=== PATIENT | male | born 1960 ===

== ENCOUNTER 2023-06-09 12:43 | Outpatient (AMB) | payer OTHER, SELFPAY ==
--- NOTE | 2023-06-09 12:55 | A.OFFVIS_ITS ---
Intake Vital Signs 06/09/23 12:56 Height 5 ft 7 in Weight 204 lb 8 oz BMI 32.0 BP 124/60 Blood Pressure Location Lt brachial Position Sitting Pulse 48 L Pulse Source Pulse Oximeter Pulse Oximetry (%) 97 Oxygen Delivery Method Room Air Intake Visit Reasons: CRE-[id number] Intake Note: Pt presents today for ? Parkinsons/Demetia Allergies No Known Allergies Allergy (Verified 06/09/23 12:59) Medication List - Last Reconciled 06/09/23 by Radha Nation MD ascorbic acid (vitamin C) 1 g PO Q6H aspirin 81 mg PO DAILY baclofen 20 mg PO DAILY buspirone 15 mg PO BID cholecalciferol (vitamin D3) 25 mcg PO DAILY clonazepam 1 mg PO DAILY cyclosporine 0.05% (Restasis MultiDose) 1 drp ophthalmic (eye) Q12H docusate sodium 100 mg PO DAILY donepezil (Aricept) 10 mg PO DAILY duloxetine 60 mg PO BID famotidine 20 mg PO BID fluticasone propionate 50 mcg/actuation (Allergy Relief (fluticasone)) 1 spray intranasal DAILY gabapentin 400 mg PO BID ipratropium-albuterol 20-100 mcg/actuation (Combivent Respimat) 1 puff inhalation Q6H lactulose 10 grams PO DAILY loratadine (Allergy Relief (loratadine)) 10 mg PO DAILY losartan 100 mg PO DAILY multivitamin 1 tab PO DAILY oxycodone 10 mg PO Q8H PRN propranolol 80 mg PO DAILY sucralfate 1 g PO BID tamsulosin 0.4 mg PO DAILY trazodone 150 mg PO DAILY umeclidinium 62.5 mcg/actuation 1 inh inhalation DAILY HPI HPI Comments History of Present Illness Details A certified medical services manager Betsy Singh helped with this appointment. 62y/o male comes for neurological evaluation . He used to see Dr. Willingham for ? dementia ? parkinsons He has h/o diabetes - currently stable without medications. He has h/o chronic back pain - sees pain management. He reports dylan intermittent hand tremors R>L during action. It is usually triggered by anxiety He has difficulty dressing and showering because of his back and knee pain.No change in speech. He has mild drooling.No change in handwriting.No difficulty with using utensils. He has trouble with sleep due to back pain. He has gait issues due to pain.he uses a cane and has had a few falls. He has trouble with focusing attention, short term memory issues.He has ROMEO and is on CPAP . He denies REM behavior disorder. He has depression anxiety. [facility] Medical History (Updated 06/09/23 @ 15:35 by Radha Nation MD) BPH (benign prostatic hyperplasia) Chronic back pain Coarse tremors Cognitive decline COPD (chronic obstructive pulmonary disease) Depression Genital herpes GERD (gastroesophageal reflux disease) Hepatitis C HTN (hypertension) Lumbar spondylosis ROMEO on CPAP Palpitations Pulmonary emboli Surgical History H/O fasciotomy H/O hernia repair H/O knee surgery Hx of cholecystectomy Family History Mother Myocardial infarct Father Lung cancer Paternal Grandmother Lung cancer Social History Alcohol intake: never Patient Tobacco Use Status: Current someday Tobacco user Review of Systems Const Reports daytime sleepiness, Reports difficulty sleeping, Reports fatigue, Reports lethargy, Reports malaise and Reports weight gain Eyes Reports blurry vision ENT Reports neck pain Musc Reports back pain, Reports arthralgias, Reports muscle weakness and Reports neck pain Neuro Reports confusion, Reports memory loss and Reports tremor(s) Psych Reports anxiety, Reports confusion, Reports depression and Reports memory loss Endo Reports fatigue Physical Exam Vital Signs: Last Vital Signs Pulse 48 L 06/09/23 12:56 BP 124/60 06/09/23 12:56 Pulse Ox 97 06/09/23 12:56 Oxygen Delivery Method Room Air 06/09/23 12:56 BMI result Body Mass Index 32.0 Const General: cooperative, healthy appearing, anxious and confusion Nutritional Appearance: overweight Orientation/consciousness: patient oriented x3 and confusion Neuro Other: Normal facial expression and blink normal speech General: patient oriented x3, tone normal, moves all extremities, no focal motor deficits and confusion Cranial nerves: Yes Facial sensation intact/muscles of mastication intact, Yes Bilaterally intact EOM present, Yes Nystagmus not present, Yes Normal facial strength present, Yes Midline tongue present, Yes Symmetric palate elevation present and Yes Ability to bilaterally elevate shoulders present Gait exam (Neuro): Antalgic gait present Motor exam (neuro): 5/5 motor strength present throughout and Normal motor muscle tone present throughout Deep tendon reflexes (DTR's): Right triceps reflex intensity grade: 1+, Left triceps reflex intensity grade: 1+, Rt Biceps (C5, C6): 1+, Left biceps reflex intensity grade: 1+, Right brachioradialis reflex intensity grade: 1+, Left brachioradialis reflex intensity grade: 1+ and Right patellar reflex intensity grade: 1+ Coordination: [id number] test normal Psych Affect: Labile affect present and Sad affect present Assessment & Plan Assessment & Plan (1) Coarse tremors: Code(s): G25.2 - Other specified forms of tremor (2) Cognitive decline: Code(s): R41.89 - Other symptoms and signs involving cognitive functions and awareness Plan Tremors are likely exaggerated physiological tremors. no evidence of parkinsons on todays exam His mood seems to be poorly controlled. consider a second opinion regarding his mood management . he denies any suicidal thoughts today His cognitive decline is likely multifactorial with poorly controlled mood, ch ronic pain, polypharmacy playing a role. Consider neuropsych eval for a more detailed exam. continue donepezil 10mg qd Coding Level of Care Code New Pt Level 4 (03072) Diagnoses Coarse tremors G25.2 Cognitive decline R41.89
[2023-06-09 12:56] VITALS: BP 124/60; PULSE 48; O2SAT 97; BMI 32.0
== END 2023-06-09 13:38 | disposition home or self-care (01) ==
PROVIDERS: PCP Internal Medicine; Visit Provider Psychiatry & Neurology Neurology
DX: G25.2 Other specified forms of tremor (principal); R41.89 Other symptoms and signs involving cognitive functions and awareness
CPT/HCPCS: 99204

== ENCOUNTER → 2023-06-09 12:43 | Outpatient (BNVA) | payer OTHER, SELFPAY | PROVIDERS: PCP Internal Medicine; Visit Provider Psychiatry & Neurology Neurology | DX: G25.2 Other specified forms of tremor (principal); R41.89 Other symptoms and signs involving cognitive functions and awareness | CPT/HCPCS: 99202 ==

== ENCOUNTER 2024-03-15 10:17 | Outpatient (AMB) | payer OTHER, SELFPAY ==
--- NOTE | 2024-03-15 10:23 | A.OFFVIS_ITS ---
Vital Signs 03/15/24 10:24 Height 5 ft 7 in Weight 204 lb BMI 31.9 BP 130/70 Blood Pressure Location Rt brachial Position Sitting Respiration 16 Pulse 76 Pulse Source Pulse Oximeter Pulse Oximetry (%) 95 Oxygen Delivery Method Room Air Intake Visit Reasons: Follow up - Confirmed Intake Note: Pt presents for a 9 month follow up for coarse tremors. Hand Sewer Shoes Required: Yes Hand Sewer Shoes Name: Olivia Mckeon CMA/ Allergies celecoxib [From Celebrex] Allergy (Mild, Verified 03/15/24 10:29) Stomach Upset Medication List - Last Reconciled 03/15/24 by Radha Nation MD ascorbic acid (vitamin C) 1 g PO Q6H aspirin 81 mg PO DAILY baclofen 20 mg PO DAILY buspirone 15 mg PO BID cholecalciferol (vitamin D3) 25 mcg PO DAILY clonazepam 1 mg PO DAILY cyclosporine 0.05% (Restasis MultiDose) 1 drp ophthalmic (eye) Q12H docusate sodium 100 mg PO DAILY donepezil (Aricept) 10 mg PO DAILY duloxetine 60 mg PO DAILY famotidine 20 mg PO BID fluticasone propionate 50 mcg/actuation (Allergy Relief (fluticasone)) 1 spray intranasal DAILY gabapentin 400 mg PO BID ipratropium-albuterol 20-100 mcg/actuation (Combivent Respimat) 1 puff inhalation Q6H lactulose 10 grams PO DAILY loratadine (Allergy Relief (loratadine)) 10 mg PO DAILY losartan 100 mg PO DAILY multivitamin 1 tab PO DAILY oxycodone 10 mg PO Q8H PRN propranolol XL 80 mg PO DAILY sucralfate 1 g PO BID tamsulosin 0.4 mg PO DAILY trazodone 150 mg PO DAILY umeclidinium 62.5 mcg/actuation 1 inh inhalation DAILY HPI Comments Details: 63y/o male comes for follow up. He says his tremors are worse, his gait is more unstable and his memory is worse. He had few falls. His mood is worse .His duloxetine was discontinued - his sleep worsened and anxiety worsened . he was started on a new medication but he does not remember the name He restarted duloxetine 60mg qd yesterday and he feels better. He used to see Dr. Willingham for ? dementia ? parkinsons He has h/o diabetes - currently stable without medications. He has h/o chronic back pain - sees pain management. He reports dylan intermittent hand tremors R>L during action. It is usually triggered by anxiety He has difficulty dressing and showering because of his back and knee pain.No change in speech. He has mild drooling.No change in handwriting.No difficulty with using utensils. He has trouble with sleep due to back pain. He has gait issues due to pain.he uses a cane and has had a few falls. He has trouble with focusing attention, short term memory issues.He has ROMOE and is on CPAP . He denies REM behavior disorder. [facility] Medical History Cognitive decline Genital herpes Hepatitis C BPH (benign prostatic hyperplasia) GERD (gastroesophageal reflux disease) Depression Pulmonary emboli Lumbar spondylosis COPD (chronic obstructive pulmonary disease) Palpitations Coarse tremors ROMEO on CPAP Chronic back pain HTN (hypertension) Surgical History H/O fasciotomy H/O knee surgery H/O hernia repair Hx of cholecystectomy Family History Mother Myocardial infarct Father Lung cancer Paternal Grandmother Lung cancer Social History Alcohol intake: never Patient Tobacco Use Status: Current someday Tobacco user Review of Systems Neuro Reports confusion Psych Reports confusion Physical Exam Vital Signs: Last Vital Signs Pulse 76 03/15/24 10:24 Resp 16 03/15/24 10:24 BP 130/70 03/15/24 10:24 Pulse Ox 95 03/15/24 10:24 Oxygen Delivery Method Room Air 03/15/24 10:24 BMI result Body Mass Index 31.9 Const General: cooperative, healthy appearing, anxious and confusion Nutritional Appearance: overweight Orientation/consciousness: patient oriented x3 and confusion Neuro Other: Normal facial expression and blink normal speech General: patient oriented x3, tone normal, moves all extremities, no focal motor deficits and confusion Cranial nerves: Yes Facial sensation intact/muscles of mastication intact, Yes Bilaterally intact EOM present, Yes Nystagmus not present, Yes Normal facial strength present, Yes Midline tongue present, Yes Symmetric palate elevation present and Yes Ability to bilaterally elevate shoulders present Gait exam (Neuro): Antalgic gait present Motor exam (neuro): 5/5 motor strength present throughout and Normal motor muscle tone present throughout Coordination: [id number] test normal Psych Affect: Labile affect present and Sad affect present Assessment & Plan Assessment & Plan (1) Coarse tremors: Comment: ? orthostatic tremors Code(s): G25.2 - Other specified forms of tremor Category: Medical (2) Cognitive decline: Comment: mood related / vascular Code(s): R41.89 - Other symptoms and signs involving cognitive functions and awareness Category: Medical Plan Tremors are likely exaggerated physiological tremors. no evidence of parkinsons on todays exam Discuss with psychiatry about mood management. cognitive therapy His cognitive decline is likely multifactorial with poorly controlled mood, chronic pain, polypharmacy playing a role. continue donepezil 10mg q Orders: Referrals Speech and Hearing Referral R41.89 - Other symptoms and signs involving cognitive functions and awareness Coding Level of Care Code Est Pt Level 4 (00612) Diagnoses Coarse tremors G25.2 Cognitive decline R41.89
[2024-03-15 10:24] VITALS: BP 130/70; PULSE 76; RESP 16; O2SAT 95; BMI 31.9
== END 2024-03-15 10:50 | disposition home or self-care (01) ==
PROVIDERS: PCP Internal Medicine; Visit Provider Psychiatry & Neurology Neurology
DX: G25.2 Other specified forms of tremor (principal); R41.89 Other symptoms and signs involving cognitive functions and awareness
CPT/HCPCS: 99214

== ENCOUNTER → 2024-03-15 10:17 | Outpatient (BNVA) | payer OTHER, SELFPAY | PROVIDERS: PCP Internal Medicine; Visit Provider Psychiatry & Neurology Neurology | DX: G25.2 Other specified forms of tremor (principal); R41.89 Other symptoms and signs involving cognitive functions and awareness | CPT/HCPCS: 99212 ==

== ENCOUNTER 2024-08-23 09:47 | Outpatient (RCR) | payer OTHER, SELFPAY ==
--- NOTE | 2024-08-27 13:01 | MHC.SP.ADU ---
Referring provider: Radha Weller MD Reason for Referral: Difficulties with memory Type of Treatment: 85630 Standardized Cognitive Performance Testing, per hour Date of Plan of Treatment: 08/23/24 Onset of Symptoms/Illness: 03/15/24 Date Treatment Started: 08/23/24 Medical Diagnosis: R41.89 Other symptoms and signs involving cognitive functions and awareness Primary Speech Language Diagnosis: R41.841 Cognitive communication disorder Secondary Speech Language Diagnosis: R47.01 Aphasia History Oliver Shaw is a 64 year old male referred for a cognitive linguistic evaluation by Radha Weller MD from [facility] in [place], [place]. Oliver reports tremors, unsteady gait, worsening memory, and experiencing falls. Per EMR, he used to see Dr. Willingham for question of dementia versus Parkinson?s. It is unclear whether Oliver has gotten a formal diagnosis. He has difficulty dressing and showering because of back and knee pain and no trouble writing or using utensils. He has ROMEO and is on a CPAP. Medical history also includes GERD, depression, pulmonary emboli, COPD, and hypertension. Patient reports having his hearing tested in 2018 which revealed typical hearing status. He is enrolled in psychological counselling presently. He received physical therapy in May 2024, but discontinued services as it was causing his pain to get worse in his back and leg. Patient uses a cane and walker to assist with ambulation. Patient reports sometimes having trouble with swallowing, expressing thoughts, understanding what others are saying, finding words, maintaining topic of conversation and using his voice. He has frequent trouble with memory, problem solving, focusing, and following directions. Oliver expressed that his communication and cognitive difficulties have been causing him anxiety and frustration. He reports choking on foods and liquids intermittently. He believes he has seen a doctor about this in the past but is unsure if he has ever had an instrumental exam done for his swallow. Oliver is a ramona [place] speaker, but also speaks Occitan. 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 He has been retired since 2012 and lives alone in a private residence. He enjoys spending time with his kids on the weekends and on weekdays attends appointments and runs errands as required. Medical History: Other: Medical History Cognitive decline Genital herpes Hepatitis C BPH (benign prostatic hyperplasia) GERD (gastroesophageal reflux disease) Depression Pulmonary emboli Lumbar spondylosis COPD (chronic obstructive pulmonary disease) Palpitations Coarse tremors ROMEO on CPAP Chronic back pain HTN (hypertension) Surgical History H/O fasciotomy H/O knee surgery H/O hernia repair Hx of cholecystectomy Social History: Employment Status: Retired Highest level of education obtained: Completed High School/GED Current Living Situation: Lives alone in private residence Assistive Devices in use: Cane, Walker Reported Speech, Language, Cognition difficulties: Attention, Memory, Speaking, Swallowing Assessment Tests of Speech & Lang Adults: BNT Clinical Impression: Impaired Observations: Oliver completed the Burwell Naming Test (BNT) Standard Form. He was presented with simple line drawings, which he was instructed to name in a confrontation naming task. Oliver correctly named 32 out of 60 images independently. Patient was able to name most common nouns, but exhibited some difficulty naming less salient items, such as scroll, sphinx, and yoke. Oliver produced some semantic paraphasias (i.e. iliamna named as ?rat,? knocker as ?doorbell,? and funnel as ?faucet?), mislabeling items with other words that were semantically related. Oliver did not appear to be aware that these were errors until he was asked to clarify his response. He demonstrated familiarity with many of the presented stimuli, often describing the item when he could not recall its label. For example, he described ?stethoscope? as ?the thing the doctors use,? and ?escalator? as ?electric steps.? Oliver recognized the correct label in 14 out of 28 trials when provided with a choice of 4 written words. He also benefitted from phonemic cues and sentence completion prompts (i.e. ?If you have a dog that bites you use a m?.? for ?muzzle?). 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 Tests of Cognition: RBANS Clinical Impression: Impaired Observations: Oliver?s cognitive linguistic skills were evaluated using the RBANS: The Repeatable Battery for the Assessment of Neuropsychological Status (RBANS-Updated Form A). The RBANS assesses aspects of cognitive memory, language, and attention skills. The RBANS is considered a screening battery for cognitive function used with adolescents and adults, ages 12 to 89 years. Composite domains assessed in this evaluation are: Immediate Memory, Visuospatial/Constructional, Language, Attention, and Delayed Memory. Assessed domains and their scores are summarized below: IMMEDIATE MEMORY: These subtests assess an individual?s ability to remember a small amount of information immediately after it is presented. Oliver was presented with a list of 10 spoken words and was instructed to repeat back as many words as he could remember from the list (List Learning). He initially recalled 4 items from the list of 10. After 3 repetitions, he recalled up to 6 items on the list, indicating that verbal repetition seems to facilitate his recall to some degree. After listening to a spoken paragraph, Oliver was instructed to re-tell the story with as much detail as he could remember (Story memory). He seemed to have an easier time recalling information from a narrative and was able to retell the narrative with most details presented to him. List Learning Total Score: 22 Scaled Score: 6 Percentile: 9th Interpretation: Low Average Story Memory Total Score: 18 Scaled Score: 11 Percentile: 63 Interpretation: Average Immediate Memory Index score: 90 Percentile: 25th Interpretation: Average VISUOSPATIAL/CONSTRUCTIONAL: These subtests assess an individual?s visuospatial skills and perception of spatial relationships. Oliver was able to complete these tasks with ease. He re-aashish a figure without error, and matched lines based on orientation. Oliver?s visuospatial skills are a relative strength. Figure Copy Total Score: 20 Scaled Score: 14 Percentile: 91 Interpretation: Superior Line Orientation Total Score: 15 Percentile Group: 26-50 Interpretation: Average Visuospatial/Constructional Index score: 105 Percentile Rank: 63 Interpretation: Average LANGUAGE: These subtests assess an individual?s word retrieval skills. Oliver named 10 out of 10 images during a confrontational naming task (Picture Naming), but exhibited more difficulty listing items in a category within a time constraint (Semantic Fluency). No errors or perseverations were observed. Oliver presents with mild anomia. Picture Naming Total Score: 10 Percentile Group: 51-75 Interpretation: Average Semantic Fluency Total Score: 9 Scaled Score: 3 Percentile Rank: 1st Interpretation: Extremely Low Language Index score: 82 Percentile Rank: 12 Interpretation: Low Average ATTENTION: These subtests assess an individual?s capacity to remember and manipulate both visually and orally presented information in short-term memory storage. Oliver was first instructed to repeat back number series that were between 2-9 digits long (Digit Span). He recalled up to 5-6 numbers at a time and often asked for the number series to be repeated to him multiple times. Oliver was also instructed to code markings with numbers (Coding). Oliver appeared distracted during this task and requested the clinician clarify task instructions. Digit Span Total Score: 8 Scaled Score: 7 Percentile Rank: 16 Interpretation: Low Average Coding Total Score: 19 Scaled Score: 3 Percentile: 1st Interpretation: Extremely Low Attention Index score: 68 Percentile Rank: 2nd Interpretation: Extremely Low DELAYED MEMORY: These subtests assess an individual?s retrieval of information from long-term memory. Oliver was able to recall several items from a list (List Recall), but exhibited more difficulty recalling details from a narrative (Story Recall) and visual information in order to re-draw a figure he previously constructed (Figure Recall). Oliver reported that he has most trouble in this area. List Recall Total Score: 4 Percentile Group: 26-50 Interpretation: Average List Recognition Total Score: 13 Percentile Group: <2 Interpretation: Extremely Low Story Recall Total Score: 6 Scaled Score: 7 Percentile Rank: 16 Interpretation: Low Average Figure Recall Total Score: 9 Scaled Score: 7 Percentile Rank: 16 Interpretation: Low Average Delayed Memory Index Score: 68 Percentile Rank: 2nd Interpretation: Extremely Low SUM OF INDEX SCORES: 413 TOTAL SCALE SCORE: 78 PERCENTILE RANK: 7% Interpretation: Borderline Lauren Luna (1998). Repeatable Battery for the Assessment of Neuropsychological Status [Manual]. [place], [place]: [place]. Impressions and Recommendations Summary: Oliver presents with a mild cognitive linguistic impairment, with difficulties in the areas of attention, word retrieval, and delayed recall. Oliver reports this is affecting him day to day and causing him increased anxiety and frustration. Oliver reports he has a hard time remembering what he had eaten the day before and forgets what he was going to do if he does not follow a particular routine. He has compensated for his difficulties with various strategies. For example, he shared that he keeps a notebook by his recliner which he uses to write down notes, to-do lists, and appointments. He leaves the light on in his bathroom as a reminder that he needs to put in his eye drops. If the light is off, it indicates to him he had already used his drops. Oliver shared another example, wherein he lays his inhaler when it has not been used and places it upright when it has. Oliver also struggles with word finding difficulty when engaging in conversation. Oliver is recommended a trial of cognitive therapy weekly x 12 sessions to work on the goals targeting short term memory, attention, and word retrieval: Impact on Daily Function/Activity Limitations: Daily Activities: Mild Interpersonal Interactions: Mild Community: Mild Prognosis for Improvement: Fair Recommendation for Speech Therapy: Outpatient Speech Therapy Frequency/Duration: 1x weekly x 12 weeks Date Range for Service Requested: Time to Reassess: PRN Shelter Goals: 1.) Oliver will utilize a variety of word-finding strategies at the conversational level with minimal assistance in >80% opportunities presented to him. 2.) Oliver will utilize compensatory strategies to assist (immediate and delayed) short-term memory in 80% of opportunities independently. Short Term Goals: Goal # : 1.1. Oliver will list 3-4 members per spoken category in 80% of trials when provided with minimal verbal prompts. 1.2. Oliver will produce a minimum of 4 different features, when presented with a word using semantic feature analysis (SFA), given minimal verbal prompts, with 80% accuracy. Goal Status: New Goal Goal# : 2.1. Oliver will recall page-level information and answer questions about the material at 80% accuracy given occasional visual cues after a 30-minute delay. 2.2. Oliver will use internal memory strategies (i.e. rehearsal, association, visualization) to recall 5-6 items at 80% accuracy when provided with minimal verbal cues. Goal Status: New Goal Goal # : 2.3. Oliver will write down relevant notes while presented with auditory instructions (i.e. voicemail message) and recall 80% of the information given use of written notes only. 2.4. Oliver will electively use an julio or tech device to record and retrieve needed information in four out of five contexts. Goal Status: New Goal Recommended Referrals to be Discussed with Primary Care Provider: Neurology Other: See Comment Recommend instrumental swallow assessment (i.e. MBSS) given patient's reports of choking/coughing with PO intake Patient Education: Completed: Yes Patient/Caregiver Education: Described Results of Evaluation Patient expressed understanding of evaluation Patient agrees with goals and treatment plan Comments/Barriers to Learning: It was a pleasure meeting and working with Oliver. Please do not hesitate to contact the [facility] if we can be of further assistance in his care. Color Straining Bag Washer Clinican/Clinical Fellow: No Supervisory Statement: N/A Speech Language Pathologist: Gillian Bishop M.A., CCC-WET END SUPERVISOR
== END 2024-08-28 15:48 | disposition still patient (30) ==
LOC: HO.SH 09:47
PROVIDERS: PCP Internal Medicine; Visit Provider Psychiatry & Neurology Neurology
DX: R41.89 Other symptoms and signs involving cognitive functions and awareness (principal)
CPT/HCPCS: 96125

== ENCOUNTER 2024-09-26 10:29 | Outpatient (AMB) | payer OTHER, SELFPAY ==
[2024-09-26 10:49] VITALS: BMI 31.9
--- NOTE | 2024-09-26 10:49 | MHC.OFFVIS ---
Vital Signs 09/26/24 10:49 Height 5 ft 7 in Weight 204 lb BMI 31.9 Intake Visit Reasons: Follow up Intake Note: Patient presents for follow up Allergies celecoxib [From Celebrex] Allergy (Mild, Verified 09/26/24 10:50) Stomach Upset PFSH Medical History Cognitive decline Genital herpes Hepatitis C BPH (benign prostatic hyperplasia) GERD (gastroesophageal reflux disease) Depression Pulmonary emboli Lumbar spondylosis COPD (chronic obstructive pulmonary disease) Palpitations Coarse tremors ROMEO on CPAP Chronic back pain HTN (hypertension) Surgical History H/O fasciotomy H/O knee surgery H/O hernia repair Hx of cholecystectomy Family History Mother Myocardial infarct Father Lung cancer Paternal Grandmother Lung cancer Social History Alcohol intake: never Patient Tobacco Use Status: Current someday Tobacco user Coding
--- NOTE | 2024-09-26 10:53 | A.OFFVIS_ITS ---
Vital Signs 09/26/24 10:49 09/26/24 10:54 Height 5 ft 7 in Weight 204 lb BMI 31.9 31.9 Intake Visit Reasons: Follow up Intake Note: Patient presents for follow up Allergies celecoxib [From Celebrex] Allergy (Mild, Verified 09/26/24 10:50) Stomach Upset Medication List - Last Reconciled 09/26/24 by Radha Nation MD ascorbic acid (vitamin C) 1 g PO Q6H aspirin 81 mg PO DAILY baclofen 20 mg PO DAILY buspirone 15 mg PO BID cholecalciferol (vitamin D3) 25 mcg PO DAILY clonazepam 0.5 mg PO DAILY cyclosporine 0.05% (Restasis MultiDose) 1 drp ophthalmic (eye) Q12H docusate sodium 100 mg PO DAILY donepezil (Aricept) 10 mg PO DAILY duloxetine 20 mg PO DAILY famotidine 20 mg PO BID fluticasone propionate 50 mcg/actuation (Allergy Relief (fluticasone)) 1 spray intranasal DAILY gabapentin 400 mg PO BID ipratropium-albuterol 20-100 mcg/actuation (Combivent Respimat) 1 puff inhalation Q6H lactulose 10 grams PO DAILY loratadine (Allergy Relief (loratadine)) 10 mg PO DAILY losartan 100 mg PO DAILY multivitamin 1 tab PO DAILY oxycodone 10 mg PO Q8H PRN propranolol XL 80 mg PO DAILY sucralfate 1 g PO BID tamsulosin 0.4 mg PO DAILY trazodone 150 mg PO DAILY umeclidinium 62.5 mcg/actuation 1 inh inhalation DAILY venlafaxine ER 150 mg PO BEDTIME HPI Comments Details: 63y/o male comes for follow up for tremors. Patient seen by myself with Dr. Nation He says his tremors are gait better days and worse during the mornings > and sometimes late in the evening. his memory is worse. He had few falls. His mood is worse because he has fear, anxiety about what he is saying or doing then he gets angry with the kids. He has to do things in a step by step sequential manner. His sleep worsened and anxiety worsened. Goes to bed at 10pm gets up at 6am, has fragmented sleep because he can't get back to sleep. He was started on a new medication but he does not remember the name, He restarted duloxetine 60mg qd yesterday and he feels better. He reports bilateral intermittent hand tremors R>L during action. It is usually triggered by anxiety. He has difficulty dressing and showering because of his back and knee pain, [facility] visits daily for assistance 8AM and 4PM. No change in speech. He has mild drooling. No change in handwriting.No difficulty with using utensils. He has trouble with sleep due to back pain. He has gait issues due to pain. He uses a cane and has had 2 falls, once in the bedroom, and once in the living room he steps on the cane. He has trouble with focusing attention, short term memory issues.He has ROMEO and is on CPAP . He denies REM behavior disorder. He has h/o chronic back pain - sees pain management. Patient has chronic pain, and mood disorder with depression, referred to psychiatry and behavioral health[facility] Medical History Cognitive decline Genital herpes Hepatitis C BPH (benign prostatic hyperplasia) GERD (gastroesophageal reflux disease) Depression Pulmonary emboli Lumbar spondylosis COPD (chronic obstructive pulmonary disease) Palpitations Coarse tremors ROMEO on CPAP Chronic back pain HTN (hypertension) Surgical History H/O fasciotomy H/O knee surgery H/O hernia repair Hx of cholecystectomy Family History Mother Myocardial infarct Father Lung cancer Paternal Grandmother Lung cancer Social History Alcohol intake: never Patient Tobacco Use Status: Current someday Tobacco user Review of Systems Const All systems reviewed & are unremarkable except as noted in HPI and below Neuro Reports confusion (looks very confused at baseline.) Psych Reports confusion (looks very confused at baseline.) Physical Exam Vital Signs: BMI result Body Mass Index 31.9 Tearful, cries in between each sentences. Const General: cooperative, anxious, confusion (looks very confused at baseline.) and tired appearing Nutritional Appearance: average body habitus Orientation/consciousness: patient oriented x3 and confusion (looks very confused at baseline.) Resp Effort & Inspection: normal respiratory effort and able to speak in complete sentences Neuro General: patient oriented x3 and confusion (looks very confused at baseline.) Psych Affect: Sad affect present Attitude: Avoids eye contact (attititude/behavior) Thought process: Perseverating thought process present Insight: Limited insight present (Psych) Judgement: Limited judgement present (Psych) Orientation What is the (year) (season) (date) (day) (month)?: year, season, day and month Where are we (state) (county) (town or city) (hospital) (floor)?: state, town or city and floor Registration Name of 3 unrelated objects clearly and slowly, then ask patient to repeat all 3 of them. (1st repeat determines score. Make sure they can repeat all three): object 1, object 2 and object 3 Attention & Calculation (CHOOSE ONE) Ask pt to begin with 100 & count backward by 7. Stop after 5 repeats. If pt cannot ask them to spell the word WORLD backward.: 93, 86, 79, 72 and 65 Spell WORLD backwards (DLROW): 3 letters Recall Ask patient to repeat the 3 items from question #3.: object 1, object 2 and object 3 Language Show patient a wristwatch & ask what it is. Repeat for pencil.: watch and pencil Ask the patient to repeat the phrase 'No ifs, ands, or buts' after you.: incorrect Ask the patient to 'take a piece of paper with their right hand' 'fold paper in half' 'place paper on floor': take paper in right hand, fold paper in half and place paper on floor Print the sentence 'CLOSE YOUR EYES' on a piece. If patient actually closes eyes then score.: followed written direction Give patient a blank piece of paper & ask to write a sentence. Score if it contains a noun & verb.: sentence contains subject and verb Score Score: 28 Assessment & Plan Assessment & Plan (1) Depression: Code(s): F32.A - Depression, unspecified Category: Medical Qualifiers: Depression Type: unspecified Qualified Code(s): F32.A - Depression, unspecified (2) Coarse tremors: Comment: ? orthostatic tremors Code(s): G25.2 - Other specified forms of tremor Category: Medical Plan MMSE 28/30 today d/t Cognitive Decline is on Donezapil 10mg PO daily. CPAP use for ROMEO Tremors bilateral Duloxetine since 02/2024 Anxiety and Mood disorder on Clonazepam Chronic depression and Pain, worsening mood disorder and symptoms, will refer patient to psychology and or psychiatry for better management. Coding Level of Care Code Est Pt Level 3 (64426) Diagnoses Depression, unspecified depression type F32.A Depression Type: unspecified Coarse tremors G25.2
[2024-09-26 10:54] VITALS: BMI 31.9
== END 2024-09-26 12:01 | disposition home or self-care (01) ==
PROVIDERS: Absent Provider Physician Assistant Medical; PCP Internal Medicine; Visit Provider Physician Assistant Medical
DX: F32.A Depression, unspecified (principal); G25.2 Other specified forms of tremor
CPT/HCPCS: 99213

== ENCOUNTER → 2024-09-26 10:29 | Outpatient (BNVA) | payer OTHER, SELFPAY | PROVIDERS: Absent Provider Physician Assistant Medical; PCP Internal Medicine; Visit Provider Physician Assistant Medical | DX: G25.2 Other specified forms of tremor (principal); F32.A Depression, unspecified | CPT/HCPCS: 99212 ==

== ENCOUNTER 2025-06-19 09:46 | Outpatient (AMB) | payer OTHER, SELFPAY ==
--- OUTSIDE RECORDS SUMMARY | 2025-06-06 06:00 | XMS_ITS ---
Author Organization [facility] Address [address] [facility] [address] [facility] [address] Care Team Providers Care Ear Pull Machine Operator Name Role Phone Osmel Oviedo MD Primary Care Provider Unavail Sergio Ortiz Unavailable [phone] Myles Encounters Encounter Location Date Provider Diagnosis [address] [address] 06/06/2025 Sergio Mcintosh Plan Of Treatment Next Appt Details Provider Name:Sergio Mcintosh , 07/17/2025 02:00:00 PM, [facility] [address], [address], Progress Notes * Mando HARPEROB: [birth year] (64 yo M)Acc No.[id number]:06/06/2025 Progress Note Patient: Oliver [place] Provider: Vance Mcintosh DPM :1960 A ge:64 Y S ex:Male Date:06/06/2025 Address[address], [place] Pcp:Osmel Oviedo MD Subjective: * Chief Complaints: * [address] Myles[address] * Medical History: Objective: * Vitals: Assessment: Plan: * Treatment: * Images: * The named appointment provid er may or may not be the originator of this progress note, and it is not deemed complete until electronically signed by the appointment provider. Sign off status: Pending * Provider: Vance Mcintosh DPM Date: 0 06/06/2025 Generated for Doroteo buchanan/Severo/Werner on: 06/19/2025 10:26 AM EDT
[2025-06-19 09:52] VITALS: BP 126/76; PULSE 65; O2SAT 94; BMI 35.9
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
--- OUTSIDE RECORDS SUMMARY | 2025-06-19 10:27 | XMS_ITS | Patient Health Record ---
Author Organization [facility] Address [address] [facility] [place] [address] Care Team Providers Care Assistant Manager/Embalmer Name Role Phone Osmel Oviedo MD Primary Care Provider Unavail able Sergio Mcintsoh Unavailable [phone] Allergies Allergen (clinical drug ingredient) Drug/Non Drug Allergy documented on EMR Reaction Allergy Type Onset Date Status Seasonale Unknown Drug Allergy Active Results Component Value Reference Range Notes HEMOGLOBIN A1C (GLYCOHEMOGLO BIN) Reviewed date:11/29/2024 09:19:39 AM Interpretation: Performing Lab: Notes/Report: HEMOGLOBIN A1C % (HH) 6.0 HEMOGLOBIN A1C (GLYCOHEMOGLO BIN) Reviewed date:02/28/2025 10:56:50 AM Interpretation: Performing Lab: Notes/Report: HEMOGLOBIN A1C % (HH) 6.4 Reason For Referral No Information Medications Medication SIG (Take, Route, Frequency, Duration) Notes Start Date End Date Status Losartan Potassium 100 MG 1 tablet Orally Once a day Active Lactulose 10 GM/15ML 15 mL as needed Ora lly Once a day Active Venlafaxine HCl Acti ve Gabapentin 400 MG 1 capsule Orally Onc e a day Active Vitamin D3 Active Finasteride 5 MG 1 tablet Orally Once a day Active Vitamin C Active Donepezil HCl 10 MG 1 tablet at bedtime Orally Once a day Active Tamsulosin HCl 0.4 MG 1 capsule Orally t wice a day Active Docusate Sodium 100 MG 1 tablet as neede d Orally three times a day Active traZODone HCl 150 MG 1 tablet at bedtime Orally Once a day Active clonazePAM 1 MG 1 tablet Orally Once a day Active Sucralfate 1 GM 1 tablet on an empty stomach Orally four times a day Active busPIRone HCl 15 MG 1 tablet Orally Twic e a day Active Propranolol HCl 80 MG 1 tablet Orally Tw ice a day Active oxyCODONE HCl 10 MG 1 tablet as needed O rally every 6 hrs Active Omeprazole 20 MG 1 capsule 1/2 to 1 h our before morning meal Orally Once a day Active Myrbetriq 50 MG 1 tablet Orally Once a day Active Extra Depth Orthopedic Shoes (1 Pair) with Customized Heat Molded Multidensity Innersoles (3 Pair) as directed Dx: NIDDM/Polyneuropathy (E11.42), Hammertoe Foot Deformity (M20.41,M20.42), Preulcerative Skin Lesion(s) (L85.1 11/29/2024 Active Social History Tobacco Use: Social History Observation Description Date Details (start date - stop date) Current Smoker 11/26/1974 - NA Tobacco use other than smoking: Question Answer Notes Are you an other tobacco user? No Tobacco Control (Standard) Question Answer Notes Tobacco use: Current smoker When did you start smoking? 11/26/1974 How often do you smoke cigarettes? Every day How many cigarettes a day do you smoke? 11-20 How soon after you wake up d o you smoke your first cigarette? 6-30 minutes Are you interested in quitting? Not ready to benjamin t Additional Findings: Tobacco user Modera te cigarette smoker (10-19 cigs/day) AUDIT-C (Standard) Question Answer Notes Did you have a drink containing alcohol in the p ast year? No Points 0 Interpretation Negative Problems Problem Type SNOMED Code ICD Code Onset Dates Problem Status W/U Status Risk Notes Problem Acquired hammer toe of right foot (536817954112 9105) Other hammer toe(s) (acquired), right foot (M20.41) Active confirmed Problem Acquired hammer toe of left foot (023722585043 9103) Other hammer toe(s) (acquired), left foot (M20.42) Active confirmed Problem Type 2 diabetes mellitus with diabetic polyneuropathy (E11.42) Active confirmed Vital Signs Heart Rate 80 /min 02/28/2025 Blood pressure diastolic 86 mm Hg 02/28/2025 Height 5ft 8in in 02/28/2025 Blood pressure systolic 139 mm Hg 02/28/2025 Weight 230 lbs 02/28/2025 BMI 34.97 kg/m2 02/28/2025 Procedures Procedure Date Ordered Date Performed Result Body Sit e 24661-HGVV SKIN LESIONS, OVER 4 11/29/2024 N/A [id number] DYSTROPHIC NAILS ANY # 11/29/2024 N/A 14194-QQLP SKIN LESIONS, OVER 02/28/2025 N/A Q6590-[id number] DYSTROPHIC NAILS ANY # 02/28/2025 N/A Encounters Encounter Location Date Provider Diagnosis [facility] [address] 11/29/2024 Sergio Mcintosh Type 2 diabetes mellitus with diabetic polyneuropathy E11.42 ; Other hammer toe(s) (acquired), right foot M20.41 and Other hammer toe(s) (acquired), [facility]20.[facility] [address] 02/28/2025 Sergio Mcintosh Type 2 diabetes mellitus with diabetic polyneuropathy E11.42 ; Other hammer toe(s) (acquired), right foot M20.41 and Other hammer toe(s) (acquired), left foot M20.42 Assessments Encounter Date Diagnosis (ICD Code) Assessment Notes Treatment Notes Treatment Clinical Notes Section Notes 11/29/2024 Other hammer toe(s) (acquired), right foot (ICD-10 - M20.41) Patient Educated with: DIABETIC FOOT CARE INSTRUCTIONS. pdf (DIABETIC FOOT CARE INSTRUCTIONS. pdf) 11/29/2024 Type 2 diabetes mellitus with diabetic polyneuropathy (ICD-10 - E11.42) 02/28/2025 Other hammer toe(s) (acquired), right foot (ICD-10 - M20.41) 02/28/2025 Type 2 diabetes mellitus with diabetic polyneuropathy (ICD-10 - E11.42) 02/28/2025 Other hammer toe(s) (acquired), left foot (ICD-10 - M20.42) 11/29/2024 Other hammer toe(s) (acquired), left foot (ICD-10 - M20.42) Plan Of Treatment Pending Test Test Name Order Date 21548-YBFV SKIN LESIONS, OVER 11/29/19 25 85252-LMDE SKIN LESIONS, OVER 4 05/08/20 25 [id number] DYSTROPHIC NAILS ANY # [id number] DYSTROPHIC NAILS ANY # Next Appt Details Provider Name:Sergio Mcintosh , 07/17/2025 02:00:00 PM, [address] [facility], [address], [place], [address], Insurance Providers Payer Name Payer Address Payer Phone Subscriber Number Group Number Insured Name Patient Relationship to Insured Coverage Start Date Coverage End Date [facility] [employer] Claims [address] [place] [id number] Oliver Shaw Self - patient is the insured Medical (General) History Medical History History ICD Code Anxiety Arthritis asthma Back,Hip,and Knee pain Dementia Depression Diabetic Gall bladder problems Headaches/Migraines High Blood Pressure Lung disease Numbness Poor circulation Psoriasis/eczema Psychiatric disorder Reflux ( GERD) Sciatica sinusitis Congestive heart failure prone to infections
--- OUTSIDE RECORDS SUMMARY | 2025-06-19 10:27 | XMS_ITS | Encounter Summary ---
Author Organization Replaced By [facility] Address [address] [place] [address] Encounters * CPT with [facility] at [place] on 2025-06-03 { reasonForRequest : PT reporting bleeding on his forearm due to an event with a cabinet>bandaged>woke up today and notes taking the bandage off and peeling away skin, bleeding continues ,"patientReports : , denies :[ Gaona Flash, circumferential gaona", Gaona reported with black tissue to the area , Open skin area after a fall with uncontrolled bleeding , Abscess/infection with streaking noted, presence of fever or wit hout , History of cellulitis, isolated redness noted , Fever and chills noted in setting of wound , Rash , Bites -bugs, spider , Abscess ], chiefComplaints : Wound Care , pmh : Congestive Heart Failure, COPD/Asthma, Coronary Artery Disease, Hypertension, Severe Persistent Mental Illness (SPMI), Diabetes Mellitus Type 2 , allergies : No Known Drug Allergies , otherAllergies": , painAssessment : , visitOutcome : , a dditionalComments : 64 y.o male reporting yesterday he banged his left forearm against the cabinet and put a band aid on it, this morning when he removed it a quarter size piece of skin wasremoved and was bleeding a lot- member placed a gauze in place. \nMember does not take any blood thinners/ no CKD. Reporting getting a cortisone injection last week for his left shoulder pain/needs a replacement.\nc/o pain at wound site. Requesting wound care assessment/treatment.\n\nI provided information on the mobile health provider response time and advised the patient and/or caregiver to monitor reported signs and symptoms. I discussed the warning signs of when to seek emergency care. } Pt chief c complaint today of a wound he acquired on his left wrist approx 10 hours prior to [facility] arrival at scene today. Pt state that last night while walking around his apartment he over swung his left arm and struck the area on his cupboard. Pt performed basic wound care on the area. Pt today states that while removing his bandage adhesive a secondary wound opened up on the patch of skin directly next to the primary wound due to a his Thin skin. Pt has attempted to control the bleed. With positive effect. Pt today would appreciate a general assessment with possible treatment today. Pt denies any cp, sob, NVD, dizziness of changes in vision. Pt stated he is not on blood thinners. Non neural focal exam, afebrile, vitals are WNL for the pt. Pt is noted to be able to ambulate in his home with the assistance of a walking device at baseline. Lungs present as clear bilaterally on auscultation. Benign abdominal assessment. No new or worsening lower extremity edema noted. Positive csm in the upper left extremity no other noted trauma or deformity, skin tear is clean and non bleeding. 1 inch in size, superficial skin level. Pt is caox4 with a GCS of 15. [facility] Jed Rocha consulted, Pt informed of findings. Wound is dressed using bacitracin, non Adhesive gauze as well as coban. Ptis informed to care for wound for approx 5 days. If wound does not heal by this time to seek assistme from either pcp or [facility] as needed. Pt informed of red flag S&S and told to call emergency services if any present. ORAL_MEDICATION, WOUND_CARE Written by Medical [facility] on 2025-06-03
--- OUTSIDE RECORDS SUMMARY | 2025-06-19 10:27 | XMS_ITS | Continuity of Care Document ---
Author Name [facility], Medical Address [address] [place] [id number] Organization Unknown Address [address] [place] [id number] Medications No known medications Problems No known problems
--- OUTSIDE RECORDS SUMMARY | 2025-06-19 10:27 | XMS_ITS | Clinical Summary ---
Author Organization [facility] Address [address] [place] [address] Phone Care Team Providers Care Performance Improvement Consultant Name Role Phone Osmel Oviedo MD Primary Care Provider [phone] Allergies Active Allergy Reactions Criticality Noted Date Comments Other 07/14/2021 Seasonal Allergies Watery eyes. Sneeazing , Medications gabapentin (NEURONTIN) 800 mg tablet Take 1 tablet (800 mg total) by mouth 3 (three) times a day. Active oxyCODONE (ROXICODONE) 10 mg immediate release tablet Take by mouth every 6 hours as needed. For pain Active omeprazole (PriLOSEC) [address] capsule Take 1 capsule (20 mg total) by mouth 1 (one) time each day. Active tamsulosin (FLOMAX) 0.4 mg 24 hr capsule Take 1 Capsule by mouth daily. Take 30 mins after same meal every day. Active MULTIVITAMIN ORAL Take by mouth 1 (one) time each day. Active clonazePAM (KlonoPIN) 0.5 mg tablet Take 1 tablet (0.5 mg total) by mouth 1 (one) time each day. Active donepeziL (ARICEPT) 10 mg tablet Take 1 tablet (10 mg total) by mouth at bedtime. Active ipratropium-alb uteroL (COMBIVENT RESPIMAT) 20-100 mcg/actuation inhaler Inhale into the lungs 4 times daily as needed. Active docusate sodium (COLACE) 100 mg capsule TAKE 1 CAPSULE BY MOUTH 3 TIMES DAILY NEEDED FOR CONSTIPATION. 3 Active fluticasone propionate (FLONASE) 50 mcg/actuation nasal spray Administer 2 sprays into each nostril 1 (one) time each day. 3 Active FREESTYLE LANCETS MISC USE TO TEST BLOOD SUGAR TWICE DAILY 3 Active propranoloL (INDERAL) 80 mg tablet Take 1 tablet (80 mg total) by mouth 1 (one) time each day. 3 Active losartan (COZAAR) 100 mg tablet Take 1 tablet (100 mg total) by mouth 1 (one) time each day. 3 Active loratadine 10 mg capsule Take 10 mg by mouth 1 (one) time each day. Active baclofen (LIORESAL) 20 mg tablet Take 1 tablet (20 mg total) by mouth 3 (three) times a day. 3 Active blood sugar diagnostic (FreeStyle Lite Strips) test strip 1 Strip by In Vitro route 2 times daily. 2 Active cholecalciferol , vitamin D3, 10 mcg (400 unit) tablet,chewable Chew. Acti ve busPIRone (BUSPAR) 15 mg tablet Take 1 tablet (15 mg total) by mouth 2 (two) times a day. Active cycloSPORINE 0.05 % drops Administer 1 drop into both eyes 2 (two) times a day. 2 Active DULoxetine (CYMBALTA) [address] capsule Take 1 capsule (20 mg total) by mouth 1 (one) time each day. 2 Active triamcinolone (KENALOG) 0.1 % cream APPLY TO HANDS TWICE A DAY NEEDED FOR FLARES 2 Active aspirin 81 mg chewable tablet Chew 1 tablet (81 mg total) 1 (one) time each day. Active traZODone (DESYREL) 150 mg tablet Take 1 tablet (150 mg total) by mouth at bedtime. Active sucralfate (CARAFATE) 1 gram tablet TAKE 1 TABLET BY MOUTH FOUR TIMES DAILY 360 tablet 11 5 Active fluticasone-ume clidinium-vilan terol (Trelegy Ellipta) 100-62.5-25 mcg inhaler Inhale 1 puff (100 mcg total) by mouth 1 (one) time each day. Rinse mouth with water after use to reduce aftertaste and incidence of candidiasis. Do not swallow. 3 each 4 5 Active albuterol HFA (PROAIR HFA ; PROVENTIL HFA ; VENTOLIN HFA) 90 mcg/actuation inhaler Inhale 2 puffs by mouth every 6 (six) hours if needed for wheezing. 3 each 3 5 Active lactulose (CHRONULAC) solutionIndicat ions:Diverticul osis TAKE 30 ML BY MOUTH TWICE DAILY 1892 mL 3 5 Active Active Problems Problem Noted Date Diagnosed Date Dilatation of aorta ([facility] V24) 04/16/2025 Overview (04/16/2025): -Most recent echocardiogram 12/2021 showed normal LVEF 60%, normal LV chamber size, mild concentric LVH, no wall motion abnormalities, mildly elevated PASP at 33 mmHg, and borderline enlargement of the ascending aorta at 4 cm Assessment & Plan (04/16/2025 11:06 AM EDT): The patient is aorta is mildly dilated on his echocardiogram in 2021. Will update his echocardiogram for periodic surveillance every 3 or so years, so he is due about now. I will notify him of the results once they are available to me. Palpitations 06/22/2022 Overview (04/16/2025): - PACs -Managed with propranolol -Holter monitor 06/2022 showed sinus rhythm throughout with minimum heart rate 42, average rate 61, maximal 130 with frequent sinus bradycardia, frequent PACs with a 10.5% burden, rare PVCs, max R-R interval 1.6 seconds -Most recent echocardiogram 12/2021 showed normal LVEF 60%, normal LV chamber size, mild concentric LVH, no wall motion abnormalities, mildly elevated PASP at 33 mmHg, and borderline enlargement of the ascending aorta at 4 cm Assessment & Plan (04/16/2025 11:05 AM EDT): The patient continues with episodic palpitations. They are not prolonged. He does not have any significant symptoms associated with them. Overall, they seem to be well-managed on his current dose propranolol. Will update his echocardiogram to follow his LVEF and his aorta. Otherwise, continue his current treatment plan. He will notify me of any changes in his current condition Urinary incontinence 03/30/2022 Constipation 01/28/2022 Shortness of breath 11/17/2021 Atrioventricular block, Mobitz type 1, [place] h 10/13/2021 Chronic obstructive pulmonar y disease with acute exacerbation ([facility] V24, [facility] V28) 05/19/2021 Chronic bronchitis ([facility] V24, [facility] V28) Lumbar radicular pain 03/11/2021 Parkinson disease ([facility] V24, [facility] V28) Nocturnal hypoxia 02/01/2020 DM (diabetes mellitus), type 2 with peripheral vascular complications ([facility] V24, [facility] V28) 08/15/2018 Type 2 diabetes mellitus wit h renal manifestations ([facility] V24, [facility] V28) 08/15/2018 Hypertension 07/07/2018 Assessment & Plan (04/16/2025 11:05 AM EDT): Patient's blood pressure is well-controlled on current dose of propranolol and losartan. Continue the same Chronic venous insufficiency 05/30/2018 Depression 02/27/2018 Tremor 02/27/2018 Eczema 12/27/2017 Esophageal dysmotility due to systemic disease 0 06/01/2017 GERD (gastroesophageal reflux disease) 7 Asthma 03/10/2017 Obstructive sleep apnea 03/10/2017 Overview (09/10/2024): [facility] Treatment Polysomnogram: Date 03/25/2009; Wt 340#; BMI 52; SE 90%; SM 92%; CPAP @ 16 -> AHI 0. [facility] Home Sleep Apnea Test: Date 09/18/2019; Wt 256#; BMI 39; AHI 9; Obstructive apneas 98; Central apneas 0; Mixed apneas 0; hypopneas 54; average oxygen saturation 91% (lowest 85% without saturations <88% for 5% or more of study) [facility] diagnostics polysomnogram 12/12/2021; weight 260; BMI 40. AHI 15; REM AHI 4; 4 central apneas and 85 hypopneas. Average oxygen saturation 92% and oxygen markos 84%. Obstructive sleep apnea-moderate with mostly hypopneas and without nocturnal hypoxemia based on 2021 polysomnogram ResScan 10/28/2019 to 11/26/2019. CPAP@ 10. 97% compliant with using the machine for >4 hours/day. Average use is 7.25 hours a night with AHI 10.5. Osteoarthritis 11/19/2016 Overview (09/10/2024): knees Genital herpes 06/30/2016 ED (erectile dysfunction) 02/04/2016 BPH (benign prostatic hyperplasia) 11/06/2015 Diverticulosis 01/12/2014 Allergic rhinitis 08/08/2013 Proteinuria 05/22/2013 Morbid obesity with BMI of 4 0.0-44.9, adult ([facility] V24, [facility] V28) Encounters Date Type Department Care Team Description 06/11/2025 Telephone Gastroenterology - [facility] [address] [address] Debora Torres MD 04/23/2025 11:00 AM EDT Ancillary Procedure Pulmonolgy - [facility] [address] [place] [phone] Chronic obstructive pulmonary disease, unspecified COPD type ([facility] V24, [facility] V28) 04/16/2025 10:40 AM EDT Office Visit [facility] [address] [facility] [address] [place] [address] Eliana Blakely NP Palpitations (Primary Dx); Primary hypertension; Dilatation of aorta ([facility] V24) from Last 3 Months Immunizations Name Administration Dates Next Due Influenza Quadravalent, MDCK , 0.5ml, preservative free (Flucelvax) 6mo and older 07/03/2021 Influenza trivalent, 0.5mL (Fluad) 65yo and olde r 07/08/2020 Pfizer SARS-CoV-2 COVID-19, mRNA, LNP-S, preservative free 01/07/2022 Pneumococcal conjugate 13 va lent (Prevnar 13, PCV13) 2mo and older 07/08/2020 Pneumococcal polysaccharide 23 valent (Pneumovax 23) 2yo and older 07/04/2009 Tdap Tetanus diptheria acell ular pertussis (Boostrix; Adacel) 7yo and older 11/06/2015 Surgical History Surgery Date Site/Laterality Comments CHOLECYSTECTOMY PROCEDURE: HISTORICAL CHOLECYSTECTOMY HERNIA REPAIR PROCEDURE: HISTORICAL HERNIA REPAIR/UMB OTHER SURGICAL HISTORY PROCEDURE: HISTORY OTHER; COMMENT: arthroscopic plantar fasciotomy KNEE SURGERY PROCEDURE: HISTORICAL KNEE SURGERY; COMMENT: arthroscopic w/ lateral meniscal repair Medical History Medical History Date Comments Allergic rhinitis 08/08/2013 DX:Allergic rh initis Asthma 03/10/2017 DX:Asthma Chronic venous insufficiency 05/30/2018 DX: Chronic venous insufficiency Depression 02/27/2018 DX:Depression Dysphagia 06/01/2017 DX:Dysphagia Diverticulosis 01/12/2014 DX:Diverticulosi s Eczema 12/27/2017 DX:Eczema BPH (benign prostatic hyperplasia) 11/06/2015 DX:BPH (benign prostatic hyperplasia) GERD (gastroesophageal reflu x disease) 05/05/2017 DX:GERD (gastroesophageal re flux disease) Genital herpes 06/30/2016 DX:Genital herpe s Chronic hepatitis C ([facility] V24, [facility] V28) 05/22/2013 DX:Chronic hepatitis C (HCC) Hypertension 07/07/2018 DX:Hypertension ED (erectile dysfunction) 02/04/2016 DX:ED (erectile dysfunction) Obstructive sleep apnea 03/10/2017 DX:Obstr uctive sleep apnea Osteoarthritis 11/19/2016 DX:Osteoarthriti s; COMMENT: knees Tremor 02/27/2018 DX:Tremor Tobacco use 10/12/2016 DX:Tobacco use History of sepsis 07/10/2018 DX:History of sepsis; COMMENT: 2nd to UTI DM (diabetes mellitus), type 2 with peripheral vascular complications ([facility] V24, [facility] V28) 08/15/2018 DX:DM (diabetes mellitus), type 2 with peripheral vascular complications (HCC) Type 2 diabetes mellitus wit h renal manifestations (CMS/HCC V24, [facility] V28) 08/15/2018 DX:Type 2 diabetes mellitus with renal manifestations (HCC) Proteinuria 05/22/2013 DX:Proteinuria History of kidney injury 07/07/2018 DX:Hist ory of kidney injury; COMMENT: hx AD Morbid obesity with BMI of 4 0.0-44.9, adult ([facility] V24, [facility] V28) 02/27/2018 DX:Morbid obesity wit h BMI of 40.0-44.9, adult (HCC) History of pulmonary embolus (PE) 08/15/2018 DX:History of pulmonary embolus (PE); COMMENT: Not currently on anticoag, does take aspirin 81 mg daily. Elevated liver enzymes DX:Elevat ed liver enzymes Left upper quadrant pain DX:Left upper quadrant pain Family History Medical History Relation Name Comments Lung cancer Father Coronary artery disease Maternal Grandmother Heart attack Mother diabetes Lung cancer Paternal Grandmother Relation Name Status Comments Brother 1 Alive Brother 2 Alive Father Maternal Grandfather Maternal Grandmother Mother Paternal Grandfather Paternal Grandmother Sister Alive Social History Tobacco Use Types Packs/Day Years Used Date Smoking Tobacco: Light Smoker Cigarettes 1 48.7 Started: 10/24/1976 Smokeless Tobacco: Never Tobacco Cessation:Ready to Q uit: Not Asked; Counseling Given: Not Answered Comments:Smokes about 10 cigarettes daily Alcohol Use Standard Drinks/Week Comments No 0 (1 standard drink = 0.6 oz pur e alcohol) Sex and Gender Information Value Date Recorded Sex Assigned at Male 01/07/2025 9:28 AM EDT Legal Sex Male 11:38 PM EST Gender Identity Male 01/07/2025 9:28 AM EDT Sexual Orientation Choose not to disclose 2024 9:28 AM EDT Obstetrics History Last Filed Vital Signs Vital Sign Reading Time Taken Comments Blood Pressure 130/78 04/16/2025 10:39 AM EDT Pulse 72 04/16/2025 10:39 AM EDT Temperature 36 C (96.8 F) 03/07/2025 10:40 AM EDT Respiratory Rate 16 03/07/2025 10:40 AM EDT Oxygen Saturation 96% 04/16/2025 10:39 AM EDT Inhaled Oxygen Concentration - - Weight 105 kg (230 lb 12.8 oz) 04/16/2025 10:39 AM EDT Height 172.7 cm (5' 8 ) 04/16/2025 10:39 AM EDT Body Mass Index 35.09 04/16/2025 10:39 AM EDT Plan of Treatment Upcoming Encounters Date Type Department Care Team (Late st Contact Info) Description 07/05/2025 2:45 PM EDT Office Visit Pulmonolgy - [address] [place] [phone] Blayne Riley MD [address] [place] [address] 07/19/2025 1:10 PM EDT Office Visit Gastroenterology - [facility] [address] [place] [address] [facility] [address] [place] [phone] Debora Torres MD [address] [place] [address] 08/01/2025 11:00 AM EDT Ancillary Procedure [facility] - [address] [place] [address] [place] [phone] Health Maintenance Due Date Last Done Comments Diabetes: Annual GFR (Glomerular Filtration Rate) 1961 Diabetes: Annual Foot Exam 1971 Diabetes: Annual Retina Eye Exam 1971 RSV Immunization Adult Patients (1 - Risk 60-74 years 1-dose series) 2021 HIV Screening 10/02/2022 Hypertension/CHF/CAD Annual BMP Blood Test 10/02/2022 Medicare Annual Wellness Visit 10/02/2022 Social Influencers of Health Screening 10/02/2022 Diabetes: Annual Urine Albumin-Creatinine Ratio (uACR) 03/30/2023 03/30/2022 Zoster Vaccines (2 of 2) 10/27/2023 09/01/2023 Diabetes: Blood Sugar Control Test (HGBA1C) 12/27/2023 06/28/2023 Depression Screening 10/24/2024 Influenza Vaccine (#1) 2025 , 06/13/2023, 06/29/2022, Additional history exists DTaP,Tdap,and Td Vaccines (2 - Td or Tdap) 11/06/2025 11/06/2015 Lung Cancer Screening (Low Dose CT) 01/07/2026 01/07/2025, 01/06/2024, 04/28/2022, Additional history exists Cholesterol Screening (Lipid Panel) 06/28/2028 06/28/2023 Colorectal Cancer Screening: Colonoscopy 09/01/2032 09/01/2022 Hepatitis C Screening Completed 12/20/2023 COVID-19 Vaccine Completed 08/05/2024, , 07/07/2022, Additional history exists Pneumococcal Vaccine: 50+ Years Completed 03/27/2025, 09/01/2023, 05/29/2022, Additional history exists HIB Vaccines Aged Out No longer eligi ble based on patient's age to complete this topic HPV Vaccines Aged Out No longer eligi ble based on patient's age to complete this topic Hepatitis A Vaccines Aged Out No long er eligible based on patient's age to complete this topic Hepatitis B Vaccines Aged Out No long er eligible based on patient's age to complete this topic IPV Vaccines Aged Out No longer eligi ble based on patient's age to complete this topic MMR Vaccines Aged Out No longer eligi ble based on patient's age to complete this topic Meningococcal ACWY Vaccine Aged Out N o longer eligible based on patient's age to complete this topic Meningococcal B Vaccine Aged Out No l onger eligible based on patient's age to complete this topic RSV Immunization Patients Under 20 months Aged Out No longer eligible based on patient's age to complete this topic Varicella Vaccines Aged Out No longer eligible based on patient's age to complete this topic Procedures Procedure Name Priority Date/Time Associated Diagnosis Comments PULMONARY FUNCTION TESTING Routine 04/23/2025 10:59 AM EDT Chronic obstructive pulmonary disease, unspecified COPD type (CMS/HCC V24, [facility] V28) ECG 12-LEAD Routine 04/16/2025 11:[address] LUNG SCREENING Routine 01/07/2025 9:3 7 AM EDT Encounter for screening for malignant neoplasm of respiratory organs Nicotine dependence, cigarettes, uncomplicated HEPATITIS C SCREENING Routine 12/20/2023 HEMOGLOBIN A1C Routine 06/28/2023 LIPID PANEL Routine 06/28/2023 COLONOSCOPY Routine 09/01/2022 URINE ALBUMIN CREATININE RATIO Routine 03/30/2022 from Last 3 Months or Most Recently Relevant to Health Maintenance Results * Pulmonary function testing: Spirometry with Bronchodilator, Carbon Monoxide Diffusing Capacity (04/23/2025 10:59 AM EDT) Impressions Luis Phillips MD - 04/23/2025 10:59 AM EDT Pulmonary function test interpretation. Spirometry reveals FEV1 of 3.21 which is 99% of the predicted value, FVC is 3.96 which is 91% of the predicted value, FEV1 to FVC ratio is 100% of the predicted value, there is no bronchodilator response. Flow volume is consistent with normal pattern. Static lung volumes are elevated [id number]. Diffusion lung capacity is also elevated. This study is consistent with normal spirometry and lung volumes along with diffusion lung capacity therefore if diagnosis of asthma is in question recommend methacholine challenge test. Clinical correlation however is recommended us Blayne Riley MD PFT ORDERABLES Final Result * ECG 12 lead (04/16/2025 11:07 AM EDT) Ventricular Rate ECG 72 BPM GEMUSE Atrial Rate 72 BPM GEMUSE P-R Interval 196 ms GEMUSE QRS Duration 76 ms GEMUSE Q-T Interval 366 ms GEMUSE QTc 400 ms GEMUSE P Wave [place] 23 degrees GEMUSE R [place] 33 degrees GEMUSE T [place] 13 degrees GEMUSE ECG Interpretation Sinus rhythm with Premature atrial complexes Otherwise normal ECG When compared with ECG of 23-AUG-2022 11:24, Premature atrial complexes are now Present Confirmed by Cleopatra HERMAN, DEE ([id number]) on 04/17/2025 4:01:08 PM GEMUSE 04/16/2025 10:4 4 AM EDT 04/17/2025 4:01 PM EDT us Eliana Blakely NP ECG ORDERABLES Edited Result - Final GEMUSE * CT Lung Screening (01/07/2025 9:37 AM EDT) Anatomical Region Laterality Modality Chest Computed Tomogra phy 01/07/2025 2:42 PM EDT Impressions 01/07/2025 3:13 PM EDT No new or suspicious pulmonary nodules. Lung RADS 2-benign. Recommend continued screening with low-dose chest CT in 12 months. -------- FINAL REPORT -------- Dictated By: FRANCISCO CRUZ Dictated Date: 01/07/2025 14:42 ET Assigned Physician: FRANCISCO CRUZ Reviewed and Electronically Signed By: FRANCISCO CRUZ Signed Date: 01/07/2025 15:13 ET Workstation ID: [id number] Transcribed By: Self Edit Transcribed Date: 01/07/2025 14:42 ET Narrative 01/07/2025 3:13 PM EDT PROCEDURE: Chest CT INDICATION: Lung cancer screening, current smoker, 47 pack year smoking history TECHNIQUE: Chest CT without contrast. Multi planar reformats were created and interpreted. The examination was performed utilizing dose reduction techniques. Total DLP 169 COMPARISON: 01/06/2024 FINDINGS: LUNGS/PLEURA: Central airways are patent. 3 mm nodule in the subpleural right lower lobe is stable. No new or suspicious pulmonary nodules. No pleural effusion or pneumothorax. MEDIASTINUM: Thyroid gland is similar compared to prior with small left inferior nodule noted. No mediastinal or hilar lymphadenopathy. Esophagus is normal. Cardiac chambers are normal in size. No pericardial effusion. CHEST WALL: No axillary lymphadenopathy or superficial hematoma. UPPER ABDOMEN:Cholecystectomy. BONES: Bones are normal for age. Procedure Note Francisco Cruz MD - 01/07/2025 PROCEDURE: Chest CT INDICATION: Lung cancer screening, current smoker, 47 pack year smokinghistory TECHNIQUE: Chest CT without contrast. Multi planar reformats were createdand interpreted. The examination was performed utilizing dose reductiontechniques. Total DLP 169 COMPARISON: 01/06/2024 FINDINGS: LUNGS/PLEURA: Central airways are patent. 3 mm nodule in the subpleuralright lower lobe is stable. No new or suspicious pulmonary nodules. Nopleural effusion or pneumothorax. MEDIASTINUM: Thyroid gland is similar compared to prior with small leftinferior nodule noted. No mediastinal or hilar lymphadenopathy.Esophagus is normal. Cardiac chambers are normal in size. No pericardialeffusion. CHEST WALL: No axillary lymphadenopathy or superficial hematoma. UPPER ABDOMEN:Cholecystectomy. BONES: Bones are normal for age. IMPRESSION: No new or suspicious pulmonary nodules. Lung RADS 2-benign. Recommendcontinued screening with low-dose chest CT in 12 months. -------- FINAL REPORT -------- Dictated By: FRANCISCO CRUZ Dictated Date: 01/07/2025 14:42 ET Assigned Physician: FRANCISCO CRUZ Reviewed and Electronically Signed By: FRANCISCO CRUZ Signed Date: 01/07/2025 15:13 ET Workstation ID: [id number] Transcribed By: Self Edit Transcribed Date: 01/07/2025 14:42 ET Result [facility] Tianna Srinivasan MD IMG CT PROCEDURES Final Result * Hepatitis C Screening (12/20/2023) [facility] Hepatitis C Screening Abstracted Result [facility] Final Result * Hemoglobin A1c (06/28/2023) [facility] Hemoglobin A1C 5.6 <=6.5 % Blood Venous blood specimen / Unknown Result [facility] Provider LAB BLOOD ORDERABLES Jossy l Result * Lipid panel (06/28/2023) [facility] LDL/HDL Ratio 2 0 - 4 Triglycerides 67 0 - 150 mg/dL Cholesterol 129 0 - 200 mg/dL HDL 57 >=40 mg/dL LDL Cholesterol 59 0 - 100 mg/dL Blood Venous blood specimen / Unknown Result [facility] LAB BLOOD ORDERABLES Jossy l Result * Colonoscopy (09/01/2022) [facility] Colonoscopy No Interpretation , Abstracted Anatomical Region Laterality Modality Other Result [facility] Final Result * Urine Albumin Creatinine Ratio (03/30/2022) [facility] Urine Albumin Creatinine Ratio Abstracted Result [facility] Final Result from Last 3 Months or Most Recently Relevant to Health Maintenance Insurance [employer] Member Subscriber Plan / Payer (Ef fective 2021-Present) Name:NISHANT HARPER Relation to Subscriber:Self Name:Nishant Harper Payer ID:[id number] Group ID:[id number] Type:Not on file Address: [place] [address] [address] [id number] Care Teams Performance Improvement Consultant Relationship Specialty Start Date End Date Osmel Oviedo MD [address] [place] [phone] PCP - General 01/16/24
--- OUTSIDE RECORDS SUMMARY | 2025-06-19 10:27 | XMS_ITS | Clinical Summary ---
Author Organization [facility] Address [address] [place] [address] Care Team Providers Care Insurance Verification Clerk Name Role Phone Ari Horne MD Primary Care Provider [phone] Allergies No known active allergies Medications Medication Sig Dispensed Refills Start Date End Date Status baclofen (LIORESAL) 20 MG tablet Take 20 mg by mouth 3 (three) times a day. 0 Active olmesartan (BENICAR) tablet 40 mg Take 40 mg by mouth daily. 0 Active methylPREDNISolone (MEDROL) 4 MG tablet Take 4 mg by mouth daily. 0 Active nicotine (NICOTROL) 10 MG inhaler Inhale 1 puff into the lungs as needed for smoking cessation. 0 Active propranolol (INDERAL) 80 MG tablet Take 80 mg by mouth daily. 0 Active Loratadine 10 MG CAPS Take 10 mg by mouth daily. 0 Active carbidopa-levodopa (SINEMET) 25-100 MG per tablet Take 1 tablet by mouth 3 (three) times a day. 0 Active fluticasone-vilante rol (BREO ELLIPTA) 100-25 MCG/INH inhaler 1 inhalation by Inhaled route daily. 0 Active mometasone (ELOCON) 0.1 % cream Apply topically daily. 0 Active polyethylene glycol (MIRALAX) 17 g packet Take 17 g by mouth daily. 0 Active clonazePAM (KlonoPIN) 1 MG tablet Take 1 mg by mouth 2 (two) times a day as needed for anxiety. 0 Active primidone (MYSOLINE) 50 MG tablet Take 50 mg by mouth 2 (two) times a day. 0 Active clotrimazole-betame thasone (LOTRISONE) cream Apply topically 2 (two) times a day. 0 Active sertraline (ZOLOFT) 100 MG tablet Take 150 mg by mouth daily. 0 Active gabapentin (NEURONTIN) 400 MG capsule Take 400 mg by mouth 3 (three) times a day. 0 Active traZODone (DESYREL) 150 MG tablet Take 150 mg by mouth every night at bedtime. 0 Active buPROPion (WELLBUTRIN XL) 300 MG 24 hr tablet Take 300 mg by mouth daily. 0 Active OXYCODONE HCL PO Take 20 mg by mouth 3 (three) times a day. 0 Active alfuzosin (UROXATRAL) 10 MG 24 hr tablet Take 10 mg by mouth daily. 0 Active omeprazole (PriLOSEC) 40 MG capsule Take 40 mg by mouth daily. 0 Active valACYclovir (VALTREX) 1000 MG tablet Take 500 mg by mouth daily. 0 Active fluticasone (FLONASE) 50 MCG/ACT nasal spray spray/apply 2 sprays in each nostril daily. 0 Active cycloSPORINE (RESTASIS) 0.05 % ophthalmic emulsion Place 1 drop into both eyes 2 (two) times a day. 0 Active aspirin EC 81 MG tablet Take 81 mg by mouth daily. 0 Active Ascorbic Acid (VITAMIN C) 1000 MG tablet Take 1 tablet (1,000 mg total) by mouth daily. 30 tablet 0 07/29/2020 Active Active Problems No known active problems Family History Medical History Relation Name Comments Cancer Father Cancer Paternal Grandmother Relation Name Status Comments Father Paternal Grandmother Social History Tobacco Use Types Packs/Day Years Used Date Smoking Tobacco: Former Cigarettes 1 977 - 07/08/2019 Smokeless Tobacco: Never Alcohol Use Standard Drinks/Week Comments No 0 (1 standard drink = 0.6 oz pur e alcohol) Sex and Gender Information Value Date Recorded Sex Assigned at Not on file Gender Identity Not on file Sexual Orientation Not on file Job Start Date Occupation Industry Not on file Not on file Not on file Last Filed Vital Signs Vital Sign Reading Time Taken Comments Blood Pressure 144/63 07/23/2020 11:11 AM EDT Pulse 51 07/23/2020 11:11 AM EDT Temperature 36.5 C (97.7 F) 07/23/2020 11:11 AM EDT Respiratory Rate - - Oxygen Saturation - - Inhaled Oxygen Concentration - - Weight 119.3 kg (263 lb) 07/23/2020 11:11 AM EDT Height 172.7 cm (5' 8 ) 07/23/2020 11:11 AM EDT Body Mass Index 39.99 07/23/2020 11:11 AM EDT Plan of Treatment Health Maintenance Due Date Last Done Comments Hepatitis C Screening 1961 COVID-19 Vaccine (#1) 01/29/1962 Depression Screening 1973 Preventative Health Evaluation 1979 Colon Cancer Screening (Colonoscopy) 2006 Shingrix-Zoster Vaccine (1 o f 2) 2011 Influenza Vaccine (#1) 2025 07/08/2020 DTap / Tdap / Td (2 - Td or Tdap) 11/06/2025 11/06/2015 Pneumococcal Vaccine (3 of 3 - PPSV23 or PCV20) 2026 07/08/2020, 07/04/2009 RSV Adult > 60+ Yrs or (1 - 1-dose 75+ series) 2036 Hepatitis B Vaccines Aged Out No long er eligible based on patient's age to complete this topic RSV Ped < 20 months Aged Out No longe r eligible based on patient's age to complete this topic Care Teams Insurance Verification Clerk Relationship Specialty Start Date End Date Ari Horne MD PCP - General Internal Medicine 07/02/20
== END 2025-06-19 10:56 | disposition home or self-care (01) ==
LOC: HO.HSMS 09:47
PROVIDERS: PCP Internal Medicine; Visit Provider Physician Assistant Medical
DX: G47.33 Obstructive sleep apnea (adult) (pediatric) (principal); G25.2 Other specified forms of tremor; R41.89 Other symptoms and signs involving cognitive functions and awareness; F32.A Depression, unspecified; R45.4 Irritability and anger
CPT/HCPCS: 99215

== ENCOUNTER → 2025-06-19 09:46 | Outpatient (BNVA) | payer OTHER, SELFPAY | PROVIDERS: PCP Internal Medicine; Visit Provider Physician Assistant Medical | DX: G25.2 Other specified forms of tremor (principal); G47.9 Sleep disorder, unspecified; R45.4 Irritability and anger; R41.89 Other symptoms and signs involving cognitive functions and awareness; F32.A Depression, unspecified; R53.83 Other fatigue; G47.33 Obstructive sleep apnea (adult) (pediatric); Z99.89 Dependence on other enabling machines and devices | CPT/HCPCS: 99212 ==